=== PATIENT | male | born 1960 | race Caucasian/White ===

== ENCOUNTER 2021-08-09 14:52 | Emergency (ER) | payer SELFPAY ==
[~2021-08-09] VITALS: Ht 175.3 cm; Wt 74.0 kg
[2021-08-09] MEDS ORDERED: SODIUM CHLORIDE 0.9% 1,000 ML IV ONE ×2 (15:30→17:00)
[2021-08-09 15:48] LABS: BASOPHILS % 0.1 % (0.0-2.0); EOSINOPHILS % 1.1 % (0.0-5.0); HEMATOCRIT. 44.7 % (42.0-52.0); HEMOGLOBIN. 14.7 g/dL (14.0-18.0); LYMPHOCYTES % 24.3 % (20.0-50.0); MEAN CORPUSCULAR HEMOGLOBIN 29.7 pg (28.0-32.0); MEAN CORPUSCULAR VOLUME 90.6 fL (80.0-94.0); MEAN PLATELET VOLUME 7.5 fl (7.4-10.4); MONOCYTES % 3.2 % (2.0-8.0); NEUTROPHILS % 71.3 % (40.0-76.0); PLATELET 388 x1000/uL (130-400); RED BLOOD CELL COUNT 4.94 mill/uL (4.7-6.1); RED CELL DISTRIBUTION WIDTH 16.2 % (11.6-14.6)
[2021-08-09 15:55] LABS: CHLORIDE 112 mEq/L (98-107)
[2021-08-09 16:19] LABS: ETHANOL BLOOD 446 mg/dL
[2021-08-09 21:07] VITALS: BP 111/72
== END 2021-08-09 21:09 | disposition home or self-care (01) ==
LOC: ER 14:52 → EDBD 14:52 → ER 21:09
DX: F10.129 Alcohol abuse with intoxication, unspecified (principal); Y90.8 Blood alcohol level of 240 mg/100 ml or more
CPT/HCPCS: 36415; 70450; 71045; 80053; 80307; 80320; 80329; 82140; 83690; 84484; 85025; 96360; 96361; 99285; J7030; Z7610; G0480